=== PATIENT | female | born 1990 | race Caucasian/White ===

== ENCOUNTER 2021-12-02 08:41 | Emergency (ER) | payer OTHER ==
[2021-12-02 09:02] LABS: BILIRUBIN NEGATIVE (NEGATIVE); BLOOD 3+ Ery/uL (NEGATIVE); GLUCOSE (U) NORMAL (NORMAL); LEUKOCYTES 2+ Leu/uL (NEGATIVE); NITRITE POSITIVE (NEGATIVE); PROTEIN 2+ mg/dL (NEGATIVE); SPECIFIC GRAVITY >=1.030 (1.001-1.030); pH 5.5 (5.0-9.0)
[2021-12-02 09:04] LABS: CLARITY CLOUDY (CLEAR); COLOR AMBER (YELLOW)
[2021-12-02 09:07] LABS: BASOPHIL 0.5 % (0-2); EOSINOPHIL 0.5 % (0-5); HCT 43.5 % (37.0-47.0); HGB 14.2 g/dl (12.5-16.0); LYMPHOCYTE 33.8 % (15-48); MCHC 32.6 g/dL (32.0-36.0); MONOCYTE 11.5 % (0-12); MPV 9.6 fL (6.0-9.5); NEUTROPHIL 53.5 % (41-80); NRBC 0; PLT 295 K/uL (150-400); RBC 4.89 M/uL (4.20-5.40); RDW 12.3 % (11.5-14.0)
[2021-12-02 09:13] LABS: BACTERIA 1+; URINARY RBC TNTC
[2021-12-02 09:20] LABS: ALBUMIN 3.3 g/dL (3.4-5.0); ALKALINE PHOSHATASE 87 U/L (46-116); ALT <6 U/L (14-59); AST 16 U/L (15-37); BILIRUBIN - TOTAL 0.3 mg/dL (0.2-1.0); BUN 12 mg/dL (7-18); BUN/CREAT RATIO (CALC) 16.9 RATIO; CHLORIDE 101 mmol/L (98-107); CO2 (BICARBONATE) 27 mmol/L (21-32); CREATININE 0.71 mg/dL (0.51-0.95); GLOBULIN (CALCULATION) 4.2 g/dL; GLUCOSE 97 mg/dL (74-106); LIPASE 62 U/L (73-393); POTASSIUM 3.6 mmol/L (3.5-5.1); TOTAL PROTEIN 7.5 g/dL (6.4-8.2)
[2021-12-02 10:48] LABS: BILIRUBIN NEGATIVE (NEGATIVE); BLOOD 3+ Ery/uL (NEGATIVE); GLUCOSE (U) NORMAL (NORMAL); LEUKOCYTES 1+ Leu/uL (NEGATIVE); NITRITE NEGATIVE (NEGATIVE); PROTEIN NEGATIVE (NEGATIVE); UROBILINOGEN 0.2 mg/dL (0.2-1.0); pH 7.5 (5.0-9.0)
[2021-12-02 10:55] LABS: CLARITY HAZY (CLEAR); COLOR AMBER (YELLOW)
[2021-12-02 10:56] LABS: BACTERIA TRACE; URINARY RBC TNTC
[2021-12-02] MEDS ORDERED: OXY-IR 5MG5 MG PO (12:18)
[2021-12-02] MEDS ORDERED: KETOROLAC TROME10 MG PO (12:18)
[2021-12-02] MEDS ORDERED: PHENERGAN25 M1 PO (12:18)
[2021-12-02] MEDS ORDERED: ONDANSETRON ODT4 MG PO (12:18)
[2021-12-02] MEDS ORDERED: CEPHALEXIN500 MG PO (12:20)
== END 2021-12-02 12:55 | disposition home or self-care (01) ==
LOC: FER 08:41
PROVIDERS: Emergency Medicine
DX: N20.0 Calculus of kidney (principal); F17.200 Nicotine dependence, unspecified, uncomplicated; Z28.311 Partially vaccinated for COVID-19; Z88.2 Allergy status to sulfonamides
CPT/HCPCS: 36415; 80053; 81001; 83690; 85025; J1170; J1885; J2270; J2405; J7030